=== PATIENT | male | born 1965 | race African-American/Black ===

== ENCOUNTER 2023-01-21 18:11 | Emergency (ER) | payer OTHER ==
[~2023-01-21] VITALS: Ht 172.7 cm; Wt 113.5 kg
[2023-01-21 18:22] VITALS: BP 160/90; PULSE 100; RESP 16; TEMP 98.6; O2SAT 99
== END 2023-01-21 20:17 | disposition home or self-care (01) ==
LOC: ER 18:11
DX: R07.89 Other chest pain (principal); E11.9 Type 2 diabetes mellitus without complications; I10 Essential (primary) hypertension; V49.9XXA Car occupant (driver) (passenger) injured in unspecified traffic accident, initial encounter; Y93.89 Activity, other specified; Y92.89 Other specified places as the place of occurrence of the external cause; Y99.8 Other external cause status
CPT/HCPCS: 71046; 99283